=== PATIENT | female | born 1970 | race Caucasian/White ===

== ENCOUNTER 2023-07-13 13:49 | Outpatient (CLI) | payer OTHER, SELFPAY ==
--- NOTE | 2023-07-13 14:30 | CRLHL7_ITS ---
For Patients: As a result of the Cures Act, medical imaging exams and procedure reports are released immediately into your electronic medical record. You may view this report before your referring provider. If you have questions, please contact your health care provider. INDICATION: Hyponatremia. COMPARISON: None. TECHNIQUE: Multiplanar T1, T2, FLAIR and diffusion-weighted imaging. Post gadolinium T1 weighted sequences. Dedicated pre and post scan sequences of the sella. FINDINGS: Normal brain parenchymal morphology. Scattered patchy foci of T2/FLAIR signal hyperintensity within the white matter of both cerebral hemispheres consistent with chronic deep white matter small vessel ischemic changes or sequela migraine headache. No intracranial hemorrhage. No abnormal ventricular dilatation. Intracranial vascular flow voids are preserved. No mass effect or midline shift. No restricted diffusion to suggest acute ischemia. Old lacunar infarct right caudate. Dedicated imaging of the sella demonstrates normal morphology of the pituitary gland. Normal thickness of the infundibulum at midline. No sellar suprasellar mass. Normal cavernous sinuses bilaterally. Bilateral orbits are unremarkable. Visualized paranasal sinuses and mastoid air cells are unremarkable. IMPRESSION: 1. No acute intracranial abnormality 2. Number parenchymal morphology. Scattered patchy T2/FLAIR signal hyperintensities within the white matter of both cerebral hemispheres consistent with chronic deep white matter small vessel ischemic changes or sequela of migraine headache 3. Dedicated imaging of the sella demonstrates normal morphology of the pituitary gland. Normal thickness of the infundibulum. No sellar or suprasellar mass Dictated by Cristopher Waters MD @ 07/14/2023 9:53:23 AM (Electronically Signed)
== END 2023-07-13 13:50 | disposition home or self-care (01) ==
LOC: MRI 13:51
PROVIDERS: PCP Family Medicine; Visit Provider Internal Medicine Nephrology
DX: E87.1 Hypo-osmolality and hyponatremia (principal); E22.2 Syndrome of inappropriate secretion of antidiuretic hormone
CPT/HCPCS: 70553; A9575

== ENCOUNTER 2023-10-05 19:51 | Outpatient (CLI) | payer OTHER, SELFPAY | END 2023-10-05 19:52 | disposition home or self-care (01) | LOC: SLEEP 19:54 | PROVIDERS: PCP Physician Assistant Medical; Visit Provider Internal Medicine | DX: G47.33 Obstructive sleep apnea (adult) (pediatric) (principal) | CPT/HCPCS: 95811; A9270 ==

== ENCOUNTER 2023-10-16 10:30 | Outpatient (CLI) | payer OTHER, SELFPAY ==
[2023-10-16 11:48] VITALS: BP 151/92; PULSE 106
--- NOTE | 2023-10-16 12:03 | P.STN_ITS ---
Stress Test Note Date Date of test: 10/31/23 Providers Primary care provider: Linwood Chamorro Stress test physician: Javier Landon Stress Test Note Stress test ordered: Exercise Stress Test Indication for test: atypical chest pain, palpitations Stress test medicine: None Results discussion: Patient is a very nice 53-year-old female who presents with the above ordered test. After discussion the risks benefits and side effects she would like to proceed. Review of the cardiac stress test medical history form is done. 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 Standard Tuan protocol is done over a time course of 6 minutes 35 seconds, test is terminated because of fatigue. She had no chest pain shortness of breath or other anginal equivalent symptoms. She did have worst was apparent rate dependent PVCs, at the higher heart rate there was no PVCs, but then these re-presented once her heart rate got to be 100. She appeared to be in quadrigeminy. No acute ST wave changes with notable with exercise, conditioning was felt to be moderate. Impression: Negative electrographic tracing on regular stress test, patient appeared to b eing quadrigeminy. Follow up suggested: Patient will be discharged home, there was no complications, she recovered normally, further follow-up per PCP.
== END 2023-10-16 10:31 | disposition home or self-care (01) ==
LOC: STRESS 10:32
PROVIDERS: PCP Physician Assistant Medical; Visit Provider Family Medicine
DX: R07.9 Chest pain, unspecified (principal); R00.2 Palpitations
CPT/HCPCS: 93016; 93017

== ENCOUNTER 2023-12-20 14:43 | Outpatient (CLI) | payer OTHER, SELFPAY | END 2023-12-20 14:44 | disposition home or self-care (01) | LOC: RAD 14:44 | PROVIDERS: PCP Physician Assistant; Visit Provider Internal Medicine Cardiovascular Disease | DX: I49.3 Ventricular premature depolarization (principal); I07.1 Rheumatic tricuspid insufficiency; R00.2 Palpitations | CPT/HCPCS: 93306 ==

== ENCOUNTER 2023-12-21 11:52 | Day surgery (SDC) | payer OTHER, SELFPAY ==
[2023-12-21] VITALS (7 sets, daily range): BP systolic 131–176; BP diastolic 81–99; PULSE 73–98; RESP 18; TEMP 36.4–37; O2SAT 92–99; BMI 35.2; BMI 36.1
--- NOTE | 2023-12-21 13:01 | ED_ITS ---
HPI - Abdominal Pain General Time Seen by Provider: 13:01 Date Seen: 12/21/23 Chief Complaint: Abdominal Pain Stated Complaint: R side abdominal pain Time Seen by Provider: 12/21/23 13:00 Source: patient and RN notes reviewed Mode of arrival: ambulatory Limitations: no limitations History of Present Illness HPI narrative: This 53-year-old female coming to the ER with right upper quadrant abdominal pain that started on Sunday. She denies any prior history of this. Started after eating ice cream. She is worried about her gallbladder. She did go to [facility] and had blood work and examination. She believes she had a chest x-ray but it looks like it was an abdominal x-ray and has not been read yet. [place] [address] in clinic today, hemoglobin normal at 13.9, platelet count [id number]. Her absolute neutrophil count was elevated at 10.1. She is noting the pain does hurt with breathing, did complain of it when I had her sit up. She has an outpatient ultrasound scheduled but it is not until Sunday. Her pain is still present, 3/3. She would take something for pain management, did drive herself here. She has had some nausea, no vomiting. She baseline has constipation. She is also in the process of being worked up for palpitations. This is been going on 8 months. She was started on hormone replacement about 2 weeks ago for anxiety and palpitations per her report. MD elicited complaint: abdominal pain Related Data Patient : No Allergies Allergy/AdvReac Type Severity Reaction Status Date / Time amoxicillin Allergy Verified 12/21/23 16:28 sertraline [From Zoloft] Allergy Verified 12/21/23 16:28 Sulfa (Sulfonamide Allergy Verified 12/21/23 16:28 Antibiotics) Review of Systems Status of ROS Reports: 6 or more systems reviewed and unremarkable except as noted in History and below [facility] Social History Smoking Status: Never smoker Non-prescribed substance use: denies use Exam Const: Vital Signs, click to edit/add: Vital Signs - 24 hr 12/21/23 11:59 12/21/23 13:37 12/21/23 15:32 Temperature 97.5 F L Pulse Rate [Pulse Oximeter] 73 98 Respiratory Rate 18 18 Blood Pressure [Ri ght Upper Arm] 149/93 H 176/96 H Pulse Oximetry 99 98 95 Oxygen Delivery Me thod Room Air Room Air Patient is alert, interactive, no apparent distress. Sclera clear, conjugate gaze. Neck is supple, no adenopathy, no thyromegaly masses nodules. Lungs are clear, good air entry, no wheezing or crackles. CV regular rate and rhythm, no murmur, normal S1-S2 come no S3-S4. Abdomen is soft, no significant tenderness on my examination, maybe some mild right upper quadrant tenderness but no rebound or guarding. I do not feel any organomegaly. She has no lower extremity edema. Patient was ambulatory into the ED of her own accord. Documenting provider has reviewed patient's vital signs: yes Course Course ED Course: Given patient's complaint of worsening right upper quadrant pain with deep breathing when I had her sit up, do think other etiologies like pulmonary and cardiac need to be considered. Will have her on pulse oximetry, obtain EKG. She certainly could have some underlying gallbladder disease, will obtain right upper quadrant ultrasound. Her comprehensive metabolic panel will not be back from clinic, will order this here. Will also be doing other blood work looking at D-dimer, troponin. Reevaluation(s) Time of Reevaluation #1: 15:33 Reevaluation #1: Reviewed with patient the preliminary findings on the ultrasound with some sludge in the gallbladder. We did review that we are proceeding with chest CT PE protocol with elevated D-dimer. She has been having palpitations, do see PVCs on her EKG at this time. She is not hypoxic. She was just put on hormone replacement therapy about 2 weeks ago, did review with her that can increase her risk for blood clots. Her D-dimer admittedly is not severely elevated, I am hopeful that we will not see pulmonary emboli but it is extremely important to rule this out. Did review mild elevation of her AST at 38, ALT of 61. She believes that they were normal just recently. I did pull up patient's chart, have not seen any liver functions in her recent labs other than the pending ones from today. Time of Reevaluation #2: 17:09 Reevaluation #2: Have reviewed with patient her CT findings of cholecystitis, have already talked to general surgeon. Plan will be for admission, surgery tomorrow. We will use antibiotics. She did have some possible mild interstitial fluid in pulmonary vascular congestion on her CT but no pulmonary emboli. Did add a lab on for proBNP. We did review that her palpitations are certainly PVCs. She states she tried metoprolol once but it made her feel like her heart was going to stop. She did not tried again, we discussed potentially decreasing the dose. She should follow up with this outpatient as far as her palpitations. Most recent e cho in her chart from 12/20/2023 showed normal left ventricular size, normal wall thickness, normal global systolic function, calculated EF of 72%. Right ventricular cavity size is normal, global systolic RV function is normal. No significant valvular abnormalities. Normal estimated pulmonary pressures by tricuspid regurgitation velocity and right atrial pressure (21mmHG plus RAP). Of note, patient had amoxicillin after her wisdom teeth or some dental procedure, states she had hives and swelling. Consultations Consultation #1: Did speak with Dr. Perry general surgeon on-call. Reviewed the case. We will initiate Cipro and Flagyl. She will be NPO after midnight, plan for surgery tomorrow. Time: 16:55 Consultation #2: Have spoken with the hospitalist Emerald Sandra, she accepts. Time: 17:18 Vital Signs Vital signs: Initial Vital Signs Temperature 97.5 F L 12/21/23 11:59 Temperature Source Temporal Artery Scan 12/21/23 11:59 Pulse Rate 73 12/21/23 11:59 Pulse Rhythm Regular 12/21/23 11:59 Respiratory Rate 18 12/21/23 11:59 Blood Pressure 149/93 H 12/21/23 11:59 Blood Pressure Mean 111 H 12/21/23 11:59 Blood Pressure Position Sitting 12/21/23 11:59 Pulse Oximetry 99 12/21/23 11:59 Oxygen Delivery Method Room Air 12/21/23 11:59 Vital Signs Temperature 97.5 F L 12/21/23 11:59 Pulse Rate 73 12/21/23 11:59 Respiratory Rate 18 12/21/23 11:59 Blood Pressure 149/93 H 12/21/23 11:59 Pulse Oximetry 99 12/21/23 11:59 Oxygen Delivery Method Room Air 12/21/23 11:59 Temperature 97.5 F L 12/21/23 11:59 Pulse Rate 98 12/21/23 15:32 Respiratory Rate 18 12/21/23 15:32 Blood Pressure 176/96 H 12/21/23 15:32 Pulse Oximetry 95 12/21/23 15:32 Oxygen Delivery Method Room Air 12/21/23 15:32 Medications Administered Medications: Discontinued Medications Generic Name Dose Route Start Last Admin Trade Name Dave PRN Reason Stop Dose Admin Ketorolac Tromethamine 15 mg 12/21/23 14:47 12/21/23 15:32 Ketorolac 15 Mg/Ml Inj IVP 12/21/23 14:48 Not Given ONCE ONE Ketorolac Tromethamine 10 mg 12/21/23 15:25 12/21/23 15:30 Ketorolac 10 Mg Tablet PO 12/21/23 15:26 10 mg ONCE ONE Administration MDM - Abdominal Pain Lab Data Attestation: I reviewed the patient's lab results. Lab results narrative: ProBNP pending at time of admission Labs: Lab Results 12/21/23 12/21/23 12/21/23 Range/Units 13:49 14:20 16:47 D-Dimer Quant (PE/DVT) 0.75 H (0.00-0.50) ug/ml Sodium 134 L (135-149) mmol/L Potassium 3.9 (3.6-5.1) mmol/L Chloride 103 (96-114) mmol/L Carbon Dioxide 23 (20-32) mmol/L Anion Gap 8 (7-15) mEq/L BUN 14 (7-30) mg/dL Creatinine 0.6 (0.5-1.5) mg/dL Estimated Creat Clear 91.48 Estimated GFR 106 ml/min Glucose 121 H (60-115) mg/dL Calcium 8.9 (8.4-10.6) mg/dL Total Bilirubin 1.1 (0.1-1.5) mg/dL AST 38 H (12-35) U/L ALT 61 H (4-35) U/L Alkaline Phosphatase 100 (40-150) U/L Troponin I < 0.01 L (0.01-0.04) ng/mL C-Reactive Protein 4.4 H (0.5-1.0) mg/dL Total Protein 8.6 H (6.0-8.3) g/dL Albumin 4.6 (3.3-5.0) g/dL Lipase 54 (23-300) U/L Lab Acknowledgement Test Added Test Added Imaging Data US - abdomen: Attestation: I have reviewed the pertinent imaging results. Radiologist's impression: Patient: DIO CARUSO Facility:?[facility] Patient ID:?[id number] Site Patient ID:?[id number]. Site :?[id number] Study:?US-Abdomen RUQ-12/21/2023 3:00:51 PM Ordering Physician:?Elisabeth Mckeon Final Report: INDICATION: Right upper quadrant pain. TECHNIQUE: Limited right upper quadrant ultrasound examination of the abdomen was performed. Grayscale and color Doppler images were obtained. COMPARISON: None. FINDINGS: Liver: Normal in size and contour. The hepatic echotexture is normal. No suspicious hepatic masses. Gallbladder: Biliary sludge. Normal in size. No pericholecystic fluid. No cholelithiasis. Sonographic Cameron`s sign was negative. Common bile duct: Measures 6 mm. Pancreas: Visualized portions unremarkable. Right kidney: Normal in size. No hydronephrosis. No suspicious renal masses or obstructive urinary calculus. IMPRESSION: Biliary sludge without other sonographic evidence of cholelithiasis or acute cholecystitis. Dictated by Arsalan Kaur MD @ 12/21/2023 3:31:08 PM (Electronic Signature) CT scan - chest: Attestation: I have reviewed the pertinent imaging results. Radiologist's impression: Patient: DIO CARUSO Facility:?[facility] Patient ID:?[id number] Site Patient ID:?[id number]. Site :?[id number] Study:?CT-Chest Angio PE 95CC ISOVUE 370-12/21/2023 4:26:40 PM Ordering Physician:?Elisabeth Mckeon Final Report: INDICATION: Right-sided pleuritic chest pain. TECHNIQUE: Multiplanar CT pulmonary angiogram was performed after the administration of 95 mL of Isovue 370 intravenous contrast. COMPARISON: None. FINDINGS: Lower neck: The visualized thyroid is unremarkable. Cardiovascular: Contrast opacification of the pulmonary arterial tree is adequate. Heart size is normal. Thoracic aorta and pulmonary artery are normal in caliber. Mild atherosclerotic calcifications of the aortic arch. Dense coronary arterial calcifications. No pulmonary embolus Mediastinum and lymph nodes: Calcified right hilar lymph node, likely due to prior granulomatous disease. No pathologic mediastinal or hilar lymphadenopathy by size criteria. Lungs: No focal consolidation. Mild pulmonary vascular congestion. Diffuse int erlobular septal thickening, compatible with interstitial edema. Mosaic attenuation pattern of opacification diffusely, nonspecific but can be seen with edema, air trapping or atypical infection. Linear bandlike opacification of the lung bases bilaterally, likely subsegmental atelectasis and/or scarring. Airways: The trachea remains patent and midline. Mild diffuse peribronchial wall thickening. Pleura: No pleural effusions or pneumothorax Chest wall: Unremarkable. Bones: No acute osseous abnormalities. Mild degenerative changes of the thoracic spine. Upper abdomen: Please refer to the separately dictated report of the concurrently performed CT abdomen and pelvis for full discussion of findings. No reflux of contrast material into the IVC. IMPRESSION: 1. No pulmonary embolus. No CT evidence of right heart strain. 2. Mild pulmonary vascular congestion with interstitial edema. No pleural effusions. Nonspecific mosaic attenuation pattern opacification can be seen with edema, air trapping or atypical infection. Please note that all CT scans at this facility use dose modulation, iterative reconstruction, and/or weight-based dosing when appropriate to reduce radiation dose to as low as reasonably achievable. Dictated by Arsalan Kaur MD @ 12/21/2023 4:44:17 PM (Electronic Signature) CT scan - abdomen: Attestation: I have reviewed the pertinent imaging results. Radiologist's impression: Patient: DIO CARUSO Facility:?[facility] Patient ID:?[id number] Site Patient ID:?[id number]. Site :?1970 Study:?CT-Abdomen 95CC ISOVUE 370-12/21/2023 4:27:38 PM Ordering Physician:?Elisabeth Mckeon Final Report: INDICATION: Right upper quadrant pain. TECHNIQUE: Multiplanar CT examination of the abdomen was performed after the administration of 95 mL Isovue 370 intravenous contrast. COMPARISON: Same day right upper quadrant ultrasound. FINDINGS: Lower chest: Small hiatal hernia. Please refer to the separately dictated report of the concurrently performed CTA of the chest for full discussion of findings. Liver: Unremarkable. Gallbladder: No cholelithiasis. No gallbladder distention. There is mild pericholecystic inflammation and gallbladder wall thickening measuring up to 4 mm that is more apparent on CT. Biliary: Unremarkable. Pancreas: Within normal limits. Spleen: Unremarkable. Adrenal glands: Unremarkable. Visualized kidneys and ureters: Normal in size and symmetrically enhancing. No obstructive uropathy. No hydronephrosis or obstructive urinary calculi. No suspicious renal masses. The ureters appear unremarkable. Visualized bowel: 2.4 cm duodenal diverticulum. No bowel wall thickening or bowel obstruction. No significant colonic diverticulosis. Mild colonic stool burden. Vasculature: No aortic aneurysm. The portal vein remains patent. Mild atherosclerotic calcifications. Lymph nodes: No pathologic lymphadenopathy by size criteria. Peritoneum: Trace layering fluid along the right paracolic gutter. No pneumoperitoneum. No drainable fluid collections. Abdominal wall/soft tissues: Unremarkable. Small fat containing umbilical hernia. Bones: No acute osseous abnormalities. Mild degenerative changes. IMPRESSION: 1. Mild pericholecystic inflammation and gallbladder wall thickening without cholelithiasis, these findings are more apparent on CT when compared to the same-day ultrasound. No intrahepatic or extrahepatic biliary ductal dilatation. Findings raise the possibility of acute acalculous cholecystitis. 2. Small hiatal hernia. Please note that all CT scans at this facility use dose modulation, iterative reconstruction, and/or weight-based dosing when appropriate to reduce radiation dose to as low as reasonably achievable. Dictated by Arsalan Kaur MD @ 12/21/2023 4:49:44 PM (Electronic Signature) ECG Data Attestation: I personally reviewed and interpreted this ECG as follows: (Sinus rhythm with first-degree AV block, PVCs seen. Rate is 95 beats per minute. QT corrected 449 milliseconds.) ECG interpretation date: 12/21/23 ECG interpretation time: 13:55 Discharge Plan Discharge Clinical Impression: Frequent PVCs, Acalculous cholecystitis Patient Disposition: Admitted As Observation
--- NOTE | 2023-12-21 13:19 | CRLHL7_ITS ---
For Patients: As a result of the Century Cures Act, medical imaging exams and procedure reports are released immediately into your electronic medical record. You may view this report before your referring provider. If you have questions, please contact your health care provider. INDICATION: Right upper quadrant pain. TECHNIQUE: Limited right upper quadrant ultrasound examination of the abdomen was performed. Grayscale and color Doppler images were obtained. COMPARISON: None. FINDINGS: Liver: Normal in size and contour. The hepatic echotexture is normal. No suspicious hepatic masses. Gallbladder: Biliary sludge. Normal in size. No pericholecystic fluid. No cholelithiasis. Sonographic Cameron`s sign was negative. Common bile duct: Measures 6 mm. Pancreas: Visualized portions unremarkable. Right kidney: Normal in size. No hydronephrosis. No suspicious renal masses or obstructive urinary calculus. IMPRESSION: Biliary sludge without other sonographic evidence of cholelithiasis or acute cholecystitis. Dictated by Arsalan Kaur MD @ 12/21/2023 3:31:08 PM (Electronically Signed)
[2023-12-21 14:44] LABS: Albumin* 4.6 g/dL (3.3-5.0); Chloride* 103 mmol/L (96-114)
[2023-12-21 14:45] LABS: Potassium* 3.9 mmol/L (3.6-5.1); Sodium* 134 mmol/L (135-149)
[2023-12-21 14:47] LABS: Creatinine* 0.6 mg/dL (0.5-1.5); Est. Creatinine Clearance* 91.48; Estimated Glomerular Filt Rate 106 ml/min
[2023-12-21 14:48] LABS: Alanine Aminotransferase* 61 U/L (4-35); Alkaline Phosphatase* 100 U/L (40-150); Anion Gap 8 mEq/L (7-15); Aspartate Amino Transferase* 38 U/L (12-35); Bilirubin Total* 1.1 mg/dL (0.1-1.5); Blood Urea Nitrogen* 14 mg/dL (7-30); Calcium* 8.9 mg/dL (8.4-10.6); Carbon Dioxide* 23 mmol/L (20-32); Glucose* 121 mg/dL (60-115); Lipase* 54 U/L (23-300); Total Protein* 8.6 g/dL (6.0-8.3)
[2023-12-21 14:51] LABS: C Reactive Protein* 4.4 mg/dL (0.5-1.0)
[2023-12-21 14:56] LABS: D Dimer Quantitative* 0.75 ug/ml (0.00-0.50)
[2023-12-21 15:00] LABS: Troponin I* < 0.01 ng/mL (0.01-0.04)
--- NOTE | 2023-12-21 15:26 | CRLHL7_ITS ---
For Patients: As a result of the Century Cures Act, medical imaging exams and procedure reports are released immediately into your electronic medical record. You may view this report before your referring provider. If you have questions, please contact your health care provider. INDICATION: Right-sided pleuritic chest pain. TECHNIQUE: Multiplanar CT pulmonary angiogram was performed after the administration of 95 mL of Isovue 370 intravenous contrast. COMPARISON: None. FINDINGS: Lower neck: The visualized thyroid is unremarkable. Cardiovascular: Contrast opacification of the pulmonary arterial tree is adequate. Heart size is normal. Thoracic aorta and pulmonary artery are normal in caliber. Mild atherosclerotic calcifications of the aortic arch. Dense coronary arterial calcifications. No pulmonary embolus Mediastinum and lymph nodes: Calcified right hilar lymph node, likely due to prior granulomatous disease. No pathologic mediastinal or hilar lymphadenopathy by size criteria. Lungs: No focal consolidation. Mild pulmonary vascular congestion. Diffuse interlobular septal thickening, compatible with interstitial edema. Mosaic attenuation pattern of opacification diffusely, nonspecific but can be seen with edema, air trapping or atypical infection. Linear bandlike opacification of the lung bases bilaterally, likely subsegmental atelectasis and/or scarring. Airways: The trachea remains patent and midline. Mild diffuse peribronchial wall thickening. Pleura: No pleural effusions or pneumothorax Chest wall: Unremarkable. Bones: No acute osseous abnormalities. Mild degenerative changes of the thoracic spine. Upper abdomen: Please refer to the separately dictated report of the concurrently performed CT abdomen and pelvis for full discussion of findings. No reflux of contrast material into the IVC. IMPRESSION: 1. No pulmonary embolus. No CT evidence of right heart strain. 2. Mild pulmonary vascular congestion with interstitial edema. No pleural effusions. Nonspecific mosaic attenuation pattern opacification can be seen with edema, air trapping or atypical infection. Please note that all CT scans at this facility use dose modulation, iterative reconstruction, and/or weight-based dosing when appropriate to reduce radiation dose to as low as reasonably achievable. Dictated by Arsalan Kaur MD @ 12/21/2023 4:44:17 PM (Electronically Signed)
[2023-12-21] MEDS: KETOROLAC 10 MG TABLET PO (15:30)
--- NOTE | 2023-12-21 15:38 | CRLHL7_ITS ---
For Patients: As a result of the Century Cures Act, medical imaging exams and procedure reports are released immediately into your electronic medical record. You may view this report before your referring provider. If you have questions, please contact your health care provider. INDICATION: Right upper quadrant pain. TECHNIQUE: Multiplanar CT examination of the abdomen was performed after the administration of 95 mL Isovue 370 intravenous contrast. COMPARISON: Same day right upper quadrant ultrasound. FINDINGS: Lower chest: Small hiatal hernia. Please refer to the separately dictated report of the concurrently performed CTA of the chest for full discussion of findings. Liver: Unremarkable. Gallbladder: No cholelithiasis. No gallbladder distention. There is mild pericholecystic inflammation and gallbladder wall thickening measuring up to 4 mm that is more apparent on CT. Biliary: Unremarkable. Pancreas: Within normal limits. Spleen: Unremarkable. Adrenal glands: Unremarkable. Visualized kidneys and ureters: Normal in size and symmetrically enhancing. No obstructive uropathy. No hydronephrosis or obstructive urinary calculi. No suspicious renal masses. The ureters appear unremarkable. Visualized bowel: 2.4 cm duodenal diverticulum. No bowel wall thickening or bowel obstruction. No significant colonic diverticulosis. Mild colonic stool burden. Vasculature: No aortic aneurysm. The portal vein remains patent. Mild atherosclerotic calcifications. Lymph nodes: No pathologic lymphadenopathy by size criteria. Peritoneum: Trace layering fluid along the right paracolic gutter. No pneumoperitoneum. No drainable fluid collections. Abdominal wall/soft tissues: Unremarkable. Small fat containing umbilical hernia. Bones: No acute osseous abnormalities. Mild degenerative changes. IMPRESSION: 1. Mild pericholecystic inflammation and gallbladder wall thickening without cholelithiasis, these findings are more apparent on CT when compared to the same-day ultrasound. No intrahepatic or extrahepatic biliary ductal dilatation. Findings raise the possibility of acute acalculous cholecystitis. 2. Small hiatal hernia. Please note that all CT scans at this facility use dose modulation, iterative reconstruction, and/or weight-based dosing when appropriate to reduce radiation dose to as low as reasonably achievable. Dictated by Arsalan Kaur MD @ 12/21/2023 4:49:44 PM (Electronically Signed)
[2023-12-21 17:27] LABS: NT Pro B Type NatriureticPept* 335 pg/mL
[2023-12-21] MEDS: CIPROFLOXACIN 400 MG/200 ML PIGGYBACK 200 MG IVPB (17:30)
[2023-12-21] MEDS: 0.9 % SODIUM CH + KCL 20 mEq/L 1,000 ML 75 ML IV (17:30)
--- NOTE | 2023-12-21 17:48 | ED.NURSE ---
report given to yury HINOJOSA. pt to room 278
[2023-12-21] MEDS: metroNIDAZOLE 500 MG/100 ML PIGGYBACK 100 MG IVPB (18:52)
--- NOTE | 2023-12-21 19:23 | P.IMHP_ITS ---
Hospitalist- H&P: HPI History of Present Illness Date Seen: 12/21/23 Chief complaint: R side abdominal pain Narrative: Bette Briceno is a 53 year old female past medical history significant for NORI on CPAP (generally noncompliant), hyperlipidemia (non compliant with statin), PVCs (non compliant with beta-estrellita), SIADH diet managed is admitted to the medical floor from the ED for acute cholelithiasis. Patient reports onset of abdominal pain a couple of days ago. Worsened with eating ice cream. Denies previous colic symptoms or history of gallbladder problems. Denies recent fevers chills or sweats. Had been nauseous but had no vomiting. Last bowel movement was a few days ago. History of constipation but irregularly uses Metamucil. Nonsmoker. Rare alcohol use. Surgical history includes wisdom teeth removal and ablation. No family history of adverse anesthesia events. No personal family history of bleeding disorders or clots. Review of Systems Narrative: REVIEW OF SYSTEMS: Complete review of systems performed and negative unless otherwise stated in HPI or below. PFSH [facility] Medical History Lacunar infarction ?I63.81 - Other cerebral infarction due to occlusion or stenosis of small artery (ICD-10) NORI (obstructive sleep apnea) ?G47.33 - Obstructive sleep apnea (adult) (pediatric) (ICD-10) Hyperlipidemia ?E78.5 - Hyperlipidemia, unspecified (ICD-10) SVT (supraventricular tachycardia) ?I47.10 - Supraventricular tachycardia, unspecified (ICD-10) Frequent PVCs ?I49.3 - Ventricular premature depolarization (ICD-10) SIADH (syndrome of inappropriate ADH production) ?E22.2 - Syndrome of inappropriate secretion of antidiuretic hormone (ICD-10) Social History What is your current living situation?: I presently have a place to live Problems where you live: no known problems Problems where you live details: No known problems In the past 12 months, utilities in danger of being shut off: no In past 12 months, lack of transportation kept you from medical appts, meetings, work, or getting things needed for daily living: no In the past 12 mos, have been you worried that your food would run out before you had money to buy more?: never true In the past 12 mos, the food you bought just didn't last and you didn't have money to buy more?: never true Highest level of school completed/degree received: Associate degree: academic program Smoking Status: Never smoker How often do you have a drink containing alcohol: never How often do you have six or more drinks on one occasion: Never AUDIT-C Alcohol total score: 0 Non-prescribed substance use: denies use Caffeine: No How often does anyone, including family, friends and others, physically hurt you : never How often does anyone, including family, friends and others, insult or talk down to you: never How often does anyone, including family, friends and others, threaten you with harm: never How often does anyone, including family, friends and others, scream or curse at you: never service: No Meds Home Medications and Allergies Allergies Allergy/AdvReac Type Severity Reaction Status Date / Time amoxicillin Allergy Verified 12/21/23 16:28 sertraline [From Zoloft] Allergy Verified 12/21/23 16:28 Sulfa (Sulfonamide Allergy Verified 12/21/23 16:28 Antibiotics) Exam Narrative: Exam Narrative: PHYSICAL EXAM General: Pleasant, conversant, NAD HEENT: Normocephalic, atraumatic, sclera white, EOMI, oral mucosa moist Cardiovascular: IRRR, No pitting edema Pulmonary: CTA bilaterally without rhonchi, rales, expiratory wheezes. No dyspnea Abdominal: Soft, nondistended, tender right upper quadrant, periumbilical Neurological: Alert, answering questions appropriately, cranial nerves intact, no focal findings Extremities: No gross joint deformity or swelling. AROMI. Neurovascularly intact Skin: Warm, dry. Const: Vital Signs, click to edit/add: Vital Signs - 24 hr 12/21/23 11:59 12/21/23 13:37 12/21/23 15:32 Temperature 97.5 F L Pulse Rate [Pulse Oximeter] 73 98 Respiratory Rate 18 18 Blood Pressure [Le ft Arm] Blood Pressure [Ri ght Upper Arm] 149/93 H 176/96 H Pulse Oximetry 99 98 95 Oxygen Delivery Me thod Room Air Room Air 12/21/23 18:38 12/21/23 18:38 Temperature 98.0 F Pulse Rate [Pulse Oximeter] 89 Respiratory Rate 18 18 Blood Pressure [Le ft Arm] 134/96 H Blood Pressure [Ri ght Upper Arm] Pulse Oximetry 94 94 Oxygen Delivery Me thod Room Air Room Air Hospitalist - H&P: Result Labs Labs: [facility] 12/21/23 14:20 Sodium 134 L Potassium 3.9 Chloride 103 Carbon Dioxide 23 BUN 14 Creatinine 0.6 Glucose 121 H Calcium 8.9 Cardiac Enzymes 12/21/23 Range/Units 14:20 Troponin I < 0.01 L (0.01-0.04) ng/mL Liver Function 12/21/23 Range/Units 14:20 Total Bilirubin 1.1 (0.1-1.5) mg/dL AST 38 H (12-35) U/L ALT 61 H (4-35) U/L Alkaline Phosphatase 100 (40-150) U/L Albumin 4.6 (3.3-5.0) g/dL ECG ECG interpretation date: 12/21/23 Interpretation: Sinus rhythm with first-degree AV block with P ACs, ventricular rate 95, QTC [address] scan - abdomen: Attestation: I have reviewed the pertinent imaging results. Radiologist's impression: Multiplanar CT examination of the abdomen was performed after the administration of 95 mL Isovue 370 intravenous contrast. COMPARISON: Same day right upper quadrant ultrasound. FINDINGS: Lower chest: Small hiatal hernia. Please refer to the separately dictated report of the concurrently performed CTA of the chest for full discussion of findings. Liver: Unremarkable. Gallbladder: No cholelithiasis. No gallbladder distention. There is mild pericholecystic inflammation and gallbladder wall thickening measuring up to 4 mm that is more apparent on CT. Biliary: Unremarkable. Pancreas: Within normal limits. Spleen: Unremarkable. Adrenal glands: Unremarkable. Visualized kidneys and ureters: Normal in size and symmetrically enhancing. No obstructive uropathy. No hydronephrosis or obstructive urinary calculi. No suspicious renal masses. The ureters appear unremarkable. Visualized bowel: 2.4 cm duodenal diverticulum. No bowel wall thickening or bowel obstruction. No significant colonic diverticulosis. Mild colonic stool burden. Vasculature: No aortic aneurysm. The portal vein remains patent. Mild atherosclerotic calcifications. Lymph nodes: No pathologic lymphadenopathy by size criteria. Peritoneum: Trace layering fluid along the right paracolic gutter. No pneumoperitoneum. No drainable fluid collections. Abdominal wall/soft tissues: Unremarkable. Small fat containing umbilical hernia. Bones: No acute osseous abnormalities. Mild degenerative changes. IMPRESSION: 1. Mild pericholecystic inflammation and gallbladder wall thickening without cholelithiasis, these findings are more apparent on CT when compared to the same-day ultrasound. No intrahepatic or extrahepatic biliary ductal dilatation. Findings raise the possibility of acute acalculous cholecystitis. 2. Small hiatal hernia. CT scan - chest: Attestation: I have reviewed the pertinent imaging results. Radiologist's impression: Multiplanar CT pulmonary angiogram was performed after the administration of 95 mL of Isovue 370 intravenous contrast. COMPARISON: None. FINDINGS: Lower neck: The visualized thyroid is unremarkable. Cardiovascular: Contrast opacification of the pulmonary arterial tree is adequate. Heart size is normal. Thoracic aorta and pulmonary artery are normal in caliber. Mild atherosclerotic calcifications of the aortic arch. Dense coronary arterial calcifications. No pulmonary embolus Mediastinum and lymph nodes: Calcified right hilar lymph node, likely due to prior granulomatous disease. No pathologic mediastinal or hilar lymphadenopathy by size criteria. Lungs: No focal consolidation. Mild pulmonary vascular congestion. Diffuse interlobular septal thickening, compatible with interstitial edema. Mosaic attenuation pattern of opacification diffusely, nonspecific but can be seen with edema, air trapping or atypical infection. Linear bandlike opacification of the lung bases bilaterally, likely subsegmental atelectasis and/or scarring. Airways: The trachea remains patent and midline. Mild diffuse peribronchial wall thickening. Pleura: No pleural effusions or pneumothorax Chest wall: Unremarkable. Bones: No acute osseous abnormalities. Mild degenerative changes of the thoracic spine. Upper abdomen: Please refer to the separately dictated report of the concurrently performed CT abdomen and pelvis for full discussion of findings. No reflux of contrast material into the IVC. IMPRESSION: 1. No pulmonary embolus. No CT evidence of right heart strain. 2. Mild pulmonary vascular congestion with interstitial edema. No pleural effusions. Nonspecific mosaic attenuation pattern opacification can be seen with edema, air trapping or atypical infection. US - abdomen: Attestation: I have reviewed the pertinent imaging results. Radiologist's impression: Limited right upper quadrant ultrasound examination of the abdomen was performed. Grayscale and color Doppler images were obtained. COMPARISON: None. FINDINGS: Liver: Normal in size and contour. The hepatic echotexture is normal. No suspicious hepatic masses. Gallbladder: Biliary sludge. Normal in size. No pericholecystic fluid. No cholelithiasis. Sonographic Cameron`s sign was negative. Common bile duct: Measures 6 mm. Pancreas: Visualized portions unremarkable. Right kidney: Normal in size. No hydronephrosis. No suspicious renal masses or obstructive urinary calculus. IMPRESSION: Biliary sludge without other sonographic evidence of cholelithiasis or acute cholecystitis. Assessment and Plan Assessment and plan (1) Acalculous cholecystitis: Problem comment: CT shows Mild pericholecystic inflammation and gallbladder wall thickening without cholelithiasis, these findings are more apparent on CT when compared to the same-day ultrasound. No intrahepatic or extrahepatic biliary ductal dilatation. Findings raise the possibility of acute acalculous cholecystitis. US shows Biliary sludge without other sonographic evidence of cholelithiasis or acute cholecystitis ED provider discussed with General surgery, Dr. Perry. Plan for surgical intervention tomorrow Continue Cipro and Flagyl as initiated in ED, maintenance IVF Okay for clear liquid diet now if tolerated without increased pain or nausea/vomiting NPO at midnight Pain and nausea management as needed Discharge planning per General surgery Status: Acute (2) Frequent PVCs: Problem comment: Chronic Recommended to take metoprolol. She took 1 dose but worried that her heart would stop so has not taken any further doses since Status: Acute (3) SIADH (syndrome of inappropriate ADH production): Problem comment: Take salt tablets twice daily, consumes high-protein diet Status: Acute (4) Hyperlipidemia: Problem comment: Recommended to use a statin. Had muscle pain with Lipitor years past. Took a couple doses of Crestor, without side effects, but worried that she would have muscle pain so stop this medication as well Status: Acute (5) NORI (obstructive sleep apnea): Problem comment: Tells me she uses her CPAP 70% of the time, just enough to meet insurance requirements Status: Acute Plan To OR tomorrow per General surgery. Continue IV antibiotics, IV fluids. Pain and nausea management as needed. NPO at midnight Total Time Spent Total Time Spent: Total time spent caring for the patient today was 75 minutes. This includes time spent for the visit reviewing the chart, time spent during the visit, time spent after the visit and documentation and planning in coordination of care.
[2023-12-21] MEDS: 0.9 % SODIUM CHLORIDE 1000 ml 1,000 ML 125 ML IV (20:18)
[2023-12-21] MEDS: SODIUM CHLORIDE 1 GM TABLET PO (21:31)
[2023-12-21] MEDS: MELATONIN 3 MG TABLET PO ×2 (21:32→23:27)
[2023-12-21] MEDS: OXYCODONE 5 MG TABLET PO (22:44)
[2023-12-21] MEDS: MORPHINE 4 MG/ML INJ IVP (23:36)
[2023-12-21] MEDS: ONDANSETRON 2 MG/ML inj 4 MG IVP (23:43)
[2023-12-22] VITALS (21 sets, daily range): BP systolic 100–133; BP diastolic 56–93; PULSE 61–91; RESP 12–18; TEMP 35.9–37.2; O2SAT 90–99
[2023-12-22] MEDS: MORPHINE 4 MG/ML INJ IVP ×2 (02:51→05:02)
[2023-12-22] MEDS: metroNIDAZOLE 500 MG/100 ML PIGGYBACK 100 MG IVPB ×3 (02:51→20:06)
[2023-12-22] MEDS: CIPROFLOXACIN 400 MG/200 ML PIGGYBACK 200 MG IVPB ×2 (05:01→17:01)
[2023-12-22] MEDS: 0.9 % SODIUM CHLORIDE 1000 ml 1,000 ML 125 ML IV (05:02)
--- NOTE | 2023-12-22 07:04 | PC.NURSE ---
End of shift [phone]; Pain well managed with current regimen. Denies nausea or vomiting. Patient increased anxiety with upcoming surgery, patient haves many questions and concerns over surgery and requiring reassurance. Up independently in room.
[2023-12-22 08:33] LABS: Basophils Absolute Auto 0.03 K/uL (0.00-0.30); Basophils Percent Auto 0.3 % (0.0-3.0); Eosinophils Absolute Auto 0.07 K/uL (0.00-0.50); Eosinophils Percent Auto 0.7 % (0.0-7.0); Hematocrit 37.6 % (33.0-51.0); Hemoglobin* 12.3 gm/dL (12.0-16.0); Immature Granulocytes Abs Auto 0.02 K/uL (0.00-0.30); Immature Granulocytes Pct Auto 0.2 %; Lymphocytes Percent Auto 18.7 % (20-44); Mean Corpuscular HGB Conc 33 gm/dL (32-36); Mean Corpuscular Hemoglobin 29 pg (26-34); Mean Corpuscular Volume 90 fL (80-100); Monocytes Percent Auto 9.6 % (0.0-11.0); Neutrophils Absolute Auto 7.35 K/uL (1.7-7.0); Neutrophils Percent Auto 70.5 % (42.0-72.0); Platelet Count* 251 K/uL (140-440); RDW Coefficient of Variation % 12.8 % (11.5-15.5); Red Blood Count 4.18 m/uL (4.00-5.20); White Blood Count* 10.42 K/uL (4.50-11.00)
[2023-12-22 08:34] LABS: Slide Review Reflex No
--- NOTE | 2023-12-22 08:44 | W.ANESCHARGE ---
Anesthesia Charges Start Date/Time Anesthesia Start Date: 12/22/23 Anesthesia Start Time: 09:12 Stop Date/Time Anesthesia Stop Date: 12/22/23 Anesthesia Stop Time: 11:28
[2023-12-22 08:46] LABS: Albumin* 3.7 g/dL (3.3-5.0); Chloride* 107 mmol/L (96-114)
[2023-12-22 08:47] LABS: Potassium* 3.9 mmol/L (3.6-5.1); Sodium* 135 mmol/L (135-149)
[2023-12-22 08:49] LABS: Alkaline Phosphatase* 82 U/L (40-150); Anion Gap 5 mEq/L (7-15); Aspartate Amino Transferase* 25 U/L (12-35); Blood Urea Nitrogen* 12 mg/dL (7-30); Carbon Dioxide* 23 mmol/L (20-32); Creatinine* 0.6 mg/dL (0.5-1.5); Est. Creatinine Clearance* 91.48; Estimated Glomerular Filt Rate 106 ml/min; Lipase* 51 U/L (23-300); Total Protein* 6.9 g/dL (6.0-8.3)
[2023-12-22 08:50] LABS: Alanine Aminotransferase* 39 U/L (4-35); Calcium* 7.8 mg/dL (8.4-10.6); Glucose* 102 mg/dL (60-115)
--- NOTE | 2023-12-22 09:07 | P.GSCN_ITS ---
History of Present Illness Consult details Date Seen: 12/22/23 Consult date: 12/22/23 Narrative: 53-year-old female presented to emergency room with right upper quadrant abdominal pain and I was asked by Dr. Landon to see him in consultation. Patient states that her pain started on Sunday after eating ice cream. The pain was persistent and was not going away. Patient had nausea but no vomiting. She was scheduled for an ultrasound next week but since the pain was persistent and was bothering her a lot, patient presented to clinic first and then was referred to emergency room. Patient states that the pain is worse with movement and taking a deep breath. Nothing was making the pain better except for pain medication. I personally reviewed her workup at the emergency room. She was found to have normal total bilirubin and lipase. AST of 38 and ALT of 61. Patient's WBC was checked in clinic and was 14. Repeat WBC today was normal. A gallbladder ultrasound was obtained that showed sludge with no evidence of cholelithiasis. The gallbladder wall was 2.5 mm thick and there was evidence of pericholecystic fluid. The common bile duct was was measured at [address] was then obtained that showed slightly distended gallbladder with pericholecystic inflammation. There was no dilated loops of small or large intestine. Review of Systems Narrative: General: no fevers HENT: no problems swallowing CV: no shortness of breath Resp: no cough GI: No nausea, vomiting, abdominal pain : no dysuria, no increased urinary frequency, no hematuria Skin: no new rashes Musculoskeletal: no back pain Neuro: no muscle weakness Psyche: no depression, no anxiety PFSH PFSH Medical History Lacunar infarction ?I63.81 - Other cerebral infarction due to occlusion or stenosis of small artery (ICD-10) NORI (obstructive sleep apnea) ?G47.33 - Obstructive sleep apnea (adult) (pediatric) (ICD-10) Hyperlipidemia ?E78.5 - Hyperlipidemia, unspecified (ICD-10) SVT (supraventricular tachycardia) ?I47.10 - Supraventricular tachycardia, unspecified (ICD-10) Frequent PVCs ?I49.3 - Ventricular premature depolarization (ICD-10) SIADH (syndrome of inappropriate ADH production) ?E22.2 - Syndrome of inappropriate secretion of antidiuretic hormone (ICD-10) Surgical History (Updated 12/22/23 @ 09:10 by Miguel Perry MD) H/O cardiac radiofrequency ablation ?Z98.890 - Other specified postprocedural states (ICD-10) Social History What is your current living situation?: I presently have a place to live Problems where you live: no known problems Problems where you live details: No known problems In the past 12 months, utilities in danger of being shut off: no In past 12 months, lack of transportation kept you from medical appts, meetings, work, or getting things needed for daily living: no In the past 12 mos, have been you worried that your food would run out before you had money to buy more?: never true In the past 12 mos, the food you bought just didn't last and you didn't have money to buy more?: never true Highest level of school completed/degree received: Associate degree: academic program Smoking Status: Never smoker How often do you have a drink containing alcohol: never How often do you have six or more drinks on one occasion: Never AUDIT-C Alcohol total score: 0 Non-prescribed substance use: denies use Caffeine: No How often does anyone, including family, friends and others, physically hurt you : never How often does anyone, including family, friends and others, insult or talk down to you: never How often does anyone, including family, friends and others, threaten you with harm: never How often does anyone, including family, friends and others, scream or curse at you: never service: No Meds Home Medications and Allergies Home Medications ?Medication ?Instructions ?Recorded ?Confirmed ?Type aspirin 81 mg chewable tablet 81 mg PO DAILY 12/22/23 12/22/23 History (Aspirin Childrens) estradiol 0.025 mg/24 hr 1 patch topical 2XW 12/22/23 12/22/23 History semiweekly transdermal patch mirtazapine 7.5 mg tablet 7.5 mg PO QPM 12/22/23 12/22/23 History ondansetron 4 mg disintegrating 4 mg PO Q8H PRN 12/22/23 12/22/23 History tablet progesterone micronized 100 mg 100 mg PO QPM 12/22/23 12/22/23 History capsule rosuvastatin 5 mg tablet 5 mg PO QPM 12/22/23 12/22/23 History sodium chloride 1,000 mg soluble 1,000 mg PO BID 12/22/23 12/22/23 History tablet Allergies Allergy/AdvReac Type Severity Reaction Status Date / Time amoxicillin Allergy Verified 12/21/23 16:28 sertraline [From Zoloft] Allergy Verified 12/21/23 16:28 Sulfa (Sulfonamide Allergy Verified 12/21/23 16:28 Antibiotics) Exam Narrative: Exam Narrative: General appearance: Alert, cooperative, and in no distress Pulmonary: Chest symmetric, lungs clear bilaterally Cardiovascular Heart: Regular rate and rhythm, S1, S2, no murmurs/rubs/gallops Gastrointestinal Abdominal: soft, not distended, tender to palpation in the right upper quadrant with positive Cameron sign. Skin: Normal skin color, texture, and turgor. No rashes or lesions. Psychiatric: Alert, cooperative, normal affect. Const: Vital Signs, click to edit/add: Vital Signs - 24 hr 12/21/23 11:59 12/21/23 13:37 12/21/23 15:32 Temperature 97.5 F L Pulse Rate [Pulse Oximeter] 73 98 Respiratory Rate 18 18 Blood Pressure [Le ft Arm] Blood Pressure [Ri ght Upper Arm] 149/93 H 176/96 H Pulse Oximetry 99 98 95 Oxygen Delivery Me thod Room Air Room Air 12/21/23 18:38 12/21/23 18:38 12/21/23 20:13 Temperature 98.0 F 98.6 F Pulse Rate [Pulse Oximeter] 89 86 Respiratory Rate 18 18 18 Blood Pressure [Le ft Arm] 134/96 H 143/99 H Blood Pressure [Ri ght Upper Arm] Pulse Oximetry 94 94 92 Oxygen Delivery Me thod Room Air Room Air Room Air 12/21/23 22:49 12/21/23 23:00 12/22/23 03:00 Temperature 97.6 F 98.3 F Pulse Rate [Pulse Oximeter] 88 88 61 Respiratory Rate 18 18 18 Blood Pressure [Le ft Arm] 131/81 100/56 L Blood Pressure [Ri ght Upper Arm] Pulse Oximetry 93 91 Oxygen Delivery Me thod Room Air Room Air 12/22/23 07:41 Temperature 99.0 F Pulse Rate [Pulse Oximeter] 88 Respiratory Rate 16 Blood Pressure [Le ft Arm] 116/78 Blood Pressure [Ri ght Upper Arm] Pulse Oximetry 92 Oxygen Delivery Me thod Room Air Results Labs Labs: Abnormal lab results 12/21/23 12/22/23 Range/Units 14:20 08:20 Lymph % (Auto) 18.7 L (20-44) % Neut # (Auto) 7.35 H (1.7-7.0) K/uL [place] # (Auto) 1.00 H (0.00-0.90) K/UL D-Dimer Quant (PE/DVT) 0.75 H (0.00-0.50) ug/ml Sodium 134 L (135-149) mmol/L Anion Gap 5 L (7-15) mEq/L Glucose 121 H (60-115) mg/dL Calcium 7.8 L (8.4-10.6) mg/dL AST 38 H (12-35) U/L ALT 61 H 39 H (4-35) U/L Troponin I < 0.01 L (0.01-0.04) ng/mL C-Reactive Protein 4.4 H (0.5-1.0) mg/dL Total Protein 8.6 H (6.0-8.3) g/dL Diabetes panel 12/21/23 12/22/23 Range/Units 14:20 08:20 Sodium 134 L 135 (135-149) mmol/L Potassium 3.9 3.9 (3.6-5.1) mmol/L Chloride 103 107 (96-114) mmol/L Carbon Dioxide 23 23 (20-32) mmol/L BUN 14 12 (7-30) mg/dL Creatinine 0.6 0.6 (0.5-1.5) mg/dL Glucose 121 H 102 (60-115) mg/dL Calcium 8.9 7.8 L (8.4-10.6) mg/dL AST 38 H 25 (12-35) U/L ALT 61 H 39 H (4-35) U/L Alkaline Phosphatase 100 82 (40-150) U/L Total Protein 8.6 H 6.9 (6.0-8.3) g/dL Albumin 4.6 3.7 (3.3-5.0) g/dL Calcium panel 12/21/23 12/22/23 Range/Units 14:20 08:20 Calcium 8.9 7.8 L (8.4-10.6) mg/dL Albumin 4.6 3.7 (3.3-5.0) g/dL Pituitary panel 12/21/23 12/22/23 Range/Units 14:20 08:20 Sodium 134 L 135 (135-149) mmol/L Potassium 3.9 3.9 (3.6-5.1) mmol/L Chloride 103 107 (96-114) mmol/L Carbon Dioxide 23 23 (20-32) mmol/L BUN 14 12 (7-30) mg/dL Creatinine 0.6 0.6 (0.5-1.5) mg/dL Glucose 121 H 102 (60-115) mg/dL Calcium 8.9 7.8 L (8.4-10.6) mg/dL Adrenal panel 12/21/23 12/22/23 Range/Units 14:20 08:20 Sodium 134 L 135 (135-149) mmol/L Potassium 3.9 3.9 (3.6-5.1) mmol/L Chloride 103 107 (96-114) mmol/L Carbon Dioxide 23 23 (20-32) mmol/L BUN 14 12 (7-30) mg/dL Creatinine 0.6 0.6 (0.5-1.5) mg/dL Glucose 121 H 102 (60-115) mg/dL Calcium 8.9 7.8 L (8.4-10.6) mg/dL Total Bilirubin 1.1 1.0 (0.1-1.5) mg/dL AST 38 H 25 (12-35) U/L ALT 61 H 39 H (4-35) U/L Alkaline Phosphatase 100 82 (40-150) U/L Total Protein 8.6 H 6.9 (6.0-8.3) g/dL Albumin 4.6 3.7 (3.3-5.0) g/dL All other labs normal. Progress Note:A&P Assessment and plan (1) Acalculous cholecystitis: Status: Acute Assessment and Plan: 53-year-old female presents with right upper quadrant abdominal pain that is most likely due to acute cholecystitis. I discussed with the patient her laboratory and imaging findings. On ultrasound and CT scan she has evidence of pericholecystic inflammation. On clinical exam she has tenderness to palpation in the right upper quadrant with positive Cameron sign, all of these findings consistent with acute cholecystitis. I recommended to proceed with laparoscopic cholecystectomy. The procedure was discussed in detail. The risks associated procedure including infection, bleeding, injury to the common bile duct, and injury to intra-abdominal organs were all discussed with the patient, and she agreed to proceed.
[2023-12-22] MEDS: CLINDAMYCIN 900 MG/50 ML-D5W 900 MG/50 ML PIGGYBACK 100 MG IVPB (09:24)
[2023-12-22] MEDS: LACTATED RINGERS 1000 ML 1,000 ML 125 ML IV ×2 (09:30→21:27)
[2023-12-22] MEDS: BUPIVACAINE 0.25% 30 ML INJECTION (11:06)
--- NOTE | 2023-12-22 11:17 | P.GSOP_ITS ---
Operative Note Date of procedure: 12/22/23 Pre-op diagnosis: 1. Acute cholecystitis. Post-op diagnosis: 1. Acute purulent cholecystitis. Type of Procedure: 1. Laparoscopic cholecystectomy. Indications: 53-year-old female presented to emergency room with several days of right upper quadrant pain that started after eating ice cream. The pain was not improving and was persistent. Patient had nausea but no vomiting. The pain was worse with taking a deep breath and with movement. Upon her workup she was found to have an elevated WBC of 14. Gallbladder ultrasound showed gallbladder sludge with normal gallbladder wall thickness and with presence of pericholecystic fluid. Her common bile duct was normal in size. Abdominal CT was obtained that showed a slightly distended gallbladder with pericholecystic inflammation. This was concerning for acute cholecystitis. On clinical exam patient had tenderness to palpation in the right upper quadrant with positive Cameron sign. Given patient's clinical history and her physical exam, acute cholecystitis was suspected, and laparoscopic cholecystectomy was recommended. The procedure was discussed in detail. The risks associated procedure including infection, bleeding, injury to intra-abdominal organs, and injury to the common bile duct were all discussed with the patient, and she agreed to proceed. Procedure Description: After discussing the risks and benefits of the procedure, the patient signed informed consent.? The operative site was marked and the patient was brought to the operating room and placed on the operating table in supine position.? Care was taken to pad the patient's pressure points.?? The patient was then intubated by anesthesia.?? The operative site was then prepped and draped in the usual sterile fashion.? A time-out was then performed. A 5-mm laparoscopy port was placed in the left upper quadrant guided by a 5-mm laparoscope placed into a translucent trochar.~ Passage through the layers of the abdominal wall was visualized with the laparoscope.~ A pneumoperitoneum was established. A 0-degree 5-mm laparoscope was advanced into the abdomen. The abdomen was briefly surveyed, and no adhesions were noted. A 10-mm port were placed infraumbilically and two more 5 mm ports were placed on the right under direct visualization by laparoscope. The camera was then changed to 10 mm 30- degree scope and placed into the abdomen through the 10 mm port. The left upper quadrant port entrance was examined and no injury to intra-abdominal organs was identified. The gallbladder was initially not identified. It was completely covered by omentum. Mental adhesions were taken down bluntly with the suction tip. The gallbladder was taut and was not able to grasp it. Laparoscopic needle and syringe were used to decompress the gallbladder. 40cc of Clear bile was suctioned from the gallbladder. The gallbladder was then grasped and retracted cephalad. Additional omental adhesions were taken down with cautery and bluntly until the gallbladder infundibulum was identified. The inflammatory rind was thickened and there was evidence of acute cholecystitis. The infundibulum was grasped and retracted laterally, exposing the peritoneum overlying the triangle of Calot. This was then divided and exposed in a blunt fashion and with hook cautery. Common bile duct was not identified but care was taken not to injure it. The node of [place] was overlying the cystic artery. This was dissected circumferentially. The cystic artery was clearly going into the gallbladder. This was clipped with two 5 mm clips on the patient's side and a single clip on the specimen side and divided with scissors. Dividing the cystic artery allowed better visualization of the medial gallbladder wall and cystic duct. The cystic duct and infundibulum were then further skeletonized bluntly and with hook cautery. The cystic duct was short. It was clipped with a single clip on the patient's side and a single clip on the gallbladder side staying close to the gallbladder infundibulum. The proximal clip barely went across the lumen of the cystic duct. The cystic duct was then divided with scissors. 0-0 PDS endoloop was placed just proximal to the cystic duct stump clipped to prevent bile leaks. I then continued dissecting the gallbladder off the gallbladder fossa. Moderate amount of edema was seen in the gallbladder wall. The gallbladder wall was tearing and creating openings in the gallbladder. Frankly purulent fluid came out from the gallbladder and that was suctioned out. We were finally able to dissect the gallbladder off the liver with hook cautery. Bleeding from lateral edge of the gallbladder fossa was noted, and this was controlled with 5 mm clips. Bleeding from the liver bed was controlled with hook cautery. The gallbladder was placed into an Endo-Catch bag and removed through the inf raumbilical incision. Surgical site was examined for bleeding. No further bleeding was seen in the surgical field. The right upper quadrant was then irrigated with copious amounts of normal saline. The fascia of the infraumbilical incision was then closed with 0-0 vicryl using [place] needle under direct visualization. Pneumoperitoneum was completely reduced after viewing removal of the trocars under direct vision. The skin was then closed with 4-0 monocryl and steristrips were applied. Instrument, sponge, and needle counts were correct at closure and at the conclusion of the case. The patient was transferred to PACU in stable condition. Findings: Purulent cholecystitis with franco pus coming out from the gallbladder. Anesthesia: GETA Surgeon: Miguel Perry MD Estimated blood loss (mL): 20 Specimen: Gallbladder Condition: stable Disposition: PACU
--- NOTE | 2023-12-22 12:03 | SUR.PHASEI ---
patient meets pacu d/c criteria
[2023-12-22] MEDS: HYDROCODONE-ACETAMIN 5-325 MG 1 TAB PO ×2 (15:21→21:31)
[2023-12-22] MEDS: HYDROmorphone 0.5 mg/0.5 ml inj IVP (20:06)
[2023-12-22] MEDS: ONDANSETRON 2 MG/ML inj IVP ×2 (20:11→20:55)
[2023-12-23] MEDS: HYDROmorphone 0.5 mg/0.5 ml inj IVP ×2 (01:29→04:19)
[2023-12-23] MEDS: HYDROCODONE-ACETAMIN 5-325 MG 1 TAB PO ×2 (04:18→10:05)
[2023-12-23] MEDS: metroNIDAZOLE 500 MG/100 ML PIGGYBACK 100 MG IVPB (04:20)
[2023-12-23] MEDS: ONDANSETRON 2 MG/ML inj IVP (04:27)
[2023-12-23 04:45] VITALS: BP 118/69; PULSE 83; RESP 18; TEMP 36.7; O2SAT 90
[2023-12-23] MEDS: CIPROFLOXACIN 400 MG/200 ML PIGGYBACK 200 MG IVPB (05:31)
--- NOTE | 2023-12-23 06:04 | PC.NURSE ---
End of shift [id number]: Cooperative with cares. Pain not managed upon start of shift, pain to abdomen reported at 8/10. Call placed to surgeon and new orders for IV dilaudid PRN for pain. Pain was managed throughout the night after addition of IV medication. Tolerating full liquid diet, intermittent nausea managed with ondansetron. Ambulates with SBA to bathroom and back, did not tolerate walking in the hallway due to increased nausea at HS. Lap incisions to abdomen clean, dry and open to air. Ice pack applied to abdomen.
[2023-12-23] MEDS: LACTATED RINGERS 1000 ML 1,000 ML 125 ML IV (06:47)
[2023-12-23 07:00] VITALS: BP 123/64; PULSE 87; RESP 18; TEMP 36.7; O2SAT 90
--- NOTE | 2023-12-23 07:55 | PM.DS1 ---
DS: Providers Provider Date Seen: 12/23/23 Primary care physician: CHRISTA Aviles Attending Physician on discharge: Miguel Perry MD DS: Diagnosis Discharge Diagnosis (1) Cholecystitis, acute: Status: Acute DS: Summary Hospital Course Hospital Course: 53-year-old female was admitted to the hospital with acute cholecystitis. She underwent laparoscopic cholecystectomy. Intraoperatively patient was found to have purulent cholecystitis. She was treated with IV antibiotics and discharged home on p.o. antibiotics. Patient did well postoperatively. Time Spent with Patient Time attestation: Total time spent providing and/or coordinating discharge services: Exam Narrative: Exam Narrative: Abdomen is soft, not distended, tender to palpation in epigastrium but no where else. Laparoscopic incisions are covered by clean Steri-Strips. Const: Vital Signs, click to edit/add: Vital Signs - 24 hr 12/22/23 11:26 12/22/23 11:30 12/22/23 11:35 Temperature 98.5 F Pulse Rate 88 79 78 Pulse Rate [Pulse Oximeter] Respiratory Rate 16 16 15 Blood Pressure 118/69 112/69 115/70 Blood Pressure [Le ft Arm] Pulse Oximetry 99 98 96 Oxygen Delivery Me thod OxyMask Oxygen Flow Rate 6 12/22/23 11:40 12/22/23 11:45 12/22/23 11:50 Temperature 97.6 F Pulse Rate 78 81 84 Pulse Rate [Pulse Oximeter] Respiratory Rate 12 14 13 Blood Pressure 117/72 119/75 117/74 Blood Pressure [Le ft Arm] Pulse Oximetry 98 93 96 Oxygen Delivery Me thod Nasal Cannula Oxygen Flow Rate 2 1 12/22/23 11:59 12/22/23 12:15 12/22/23 12:30 Temperature 96.6 F L Pulse Rate 90 83 81 Pulse Rate [Pulse Oximeter] Respiratory Rate 16 16 16 Blood Pressure 119/89 114/69 115/74 Blood Pressure [Le ft Arm] Pulse Oximetry 91 92 93 Oxygen Delivery Me thod Nasal Cannula Nasal Cannula Nasal Cannula Oxygen Flow Rate 1 1 1 12/22/23 12:45 12/22/23 13:00 12/22/23 13:30 Temperature 97.8 F Pulse Rate 83 86 84 Pulse Rate [Pulse Oximeter] Respiratory Rate 16 16 16 Blood Pressure 128/79 127/82 123/93 H Blood Pressure [Le ft Arm] Pulse Oximetry 93 94 92 Oxygen Delivery Me thod Nasal Cannula Nasal Cannula Nasal Cannula Oxygen Flow Rate 1 1 1 12/22/23 14:00 12/22/23 15:00 12/22/23 16:00 Temperature 98.2 F 97.9 F Pulse Rate 86 91 87 Pulse Rate [Pulse Oximeter] Respiratory Rate 16 18 16 Blood Pressure 120/81 114/77 125/87 Blood Pressure [Le ft Arm] Pulse Oximetry 95 92 92 Oxygen Delivery Me thod Nasal Cannula Nasal Cannula Nasal Cannula Oxygen Flow Rate 1 1 1 12/22/23 17:00 12/22/23 18:00 12/22/23 19:00 Temperature 98.0 F 97.2 F L Pulse Rate 82 89 Pulse Rate [Pulse Oximeter] 86 Respiratory Rate 16 16 18 Blood Pressure 133/83 131/82 Blood Pressure [Le ft Arm] 128/71 Pulse Oximetry 93 92 91 Oxygen Delivery Me thod Nasal Cannula Nasal Cannula Nasal Cannula Oxygen Flow Rate 1 1 1 12/22/23 23:00 12/22/23 23:00 12/23/23 04:45 Temperature 98.1 F Pulse Rate Pulse Rate [Pulse Oximeter] 86 82 83 Respiratory Rate 18 18 18 Blood Pressure Blood Pressure [Le ft Arm] 118/69 Pulse Oximetry 90 90 Oxygen Delivery Me thod Room Air Room Air Oxygen Flow Rate DS: Data Data Completed and Pending Labs on day of discharge: Labs from last 24 hours 12/22/23 08:20 WBC 10.42 RBC 4.18 Hgb 12.3 Hct 37.6 MCV 90 MCH 29 MCHC 33 RDW Coeff of [place] 12.8 Plt Count 251 Neut % (Auto) 70.5 Lymph % (Auto) 18.7 L [place] % (Auto) 9.6 Eos % (Auto) 0.7 Baso % (Auto) 0.3 Neut # (Auto) 7.35 H Lymph # (Auto) 1.90 [place] # (Auto) 1.00 H Eos # (Auto) 0.07 Baso # (Auto) 0.03 Abs Immat Gran (auto) 0.02 Imm/Tot Granulo (auto) 0.2 Sodium 135 Potassium 3.9 Chloride 107 Carbon Dioxide 23 Anion Gap 5 L BUN 12 Creatinine 0.6 Estimated Creat Clear 91.48 Estimated GFR 106 Glucose 102 Calcium 7.8 L Total Bilirubin 1.0 AST 25 ALT 39 H Alkaline Phosphatase 82 Total Protein 6.9 Albumin 3.7 Lipase 51 Discharge Plan Discharge Disposition: Home w/ Parent or Adult Discharging Surgeon: Miguel Perry Follow-Up Appointment: 2 weeks [facility] Prescriptions: New hydrocodone-acetaminophen 5-325 mg tablet 1 tab PO Q6H PRN (Reason: pain) Qty: 25 0RF polyethylene glycol 3350 [Miralax] 17 gram/dose powder 17 g PO DAILY Qty: 119 0RF ciprofloxacin HCl [Cipro] 500 mg tablet 500 mg PO BID Qty: 10 0RF metronidazole 500 mg tablet 500 mg PO TID Qty: 15 0RF Continued progesterone micronized 100 mg capsule 100 mg PO QPM estradiol 0.025 mg/24 hr patch semiweekly 1 patch topical 2XW rosuvastatin 5 mg tablet 5 mg PO QPM mirtazapine 7.5 mg tablet 7.5 mg PO QPM sodium chloride 1,000 mg tablet,soluble 1,000 mg PO BID aspirin [Aspirin Childrens] 81 mg tablet,chewable 81 mg PO DAILY ondansetron 4 mg tablet,disintegrating 4 mg PO Q8H PRN Activity Level: No strenuous activity Activity Detail: No strenuous activity or lifting more than 15-20 lbs for 4-6 weeks. Take laxative such as MiraLax or senna daily for the first 7-10 days after surgery to prevent constipation. Discharge Diet: Regular Patient Instructions: Hydrocodone/Acetaminophen (By mouth), Polyethylene Glycol 3350 (By mouth), General Anesthesia (DC), Laparoscopic Cholecystectomy (DC), Post-Operative Instructions: Laparoscopic Cholecystectomy Follow-up: Miguel Perry MD [Staff Physician] - ([facility]) Discharge Orders: Discharge Order (Routine); Ordered 12/23/23 Ordered By: Miguel Perry
--- NOTE | 2023-12-23 11:12 | PC.NURSE ---
Patient alert and oriented x4, tolerating a reg. diet. Patient reports passing gas, VSS and ambulating room and hallways indpen. 4 lap sites on abd, C/D/I. Patient rates pain when moving around at 8/10, PRN [place] administrered with relief. Patient discharged today at 1055, to home accompanied by BF. Patient's IV removed intact. Belongings sheet signed and patient verbalized understanding of discharge instructions.
--- NOTE | 2023-12-24 13:46 | PC.NURSE ---
Patient called stating she is having intermittent right sided pain under breast. It comes and goes. Hurts worse when she eats. Patient also stated she feels bloated and is having a hard time taking a deep breath. Denies N/V, fevers, and blood in stool. Spoke with oncall surgeon, Dr. Perry. Per Dr. Perry, it sounds to be normal postoperative pain at this time. Would encourage patient to be more aggressive with bowel care and add in ex-lax or magnesium citrate. Educated patient to call or be seen in ER if she develops fevers, unable to eat or drink, pain not relieved by prescription pain medications, or if worsening shortness of breath. Patient verbally understood instructions and stated her pain was getting better after taking the [place].
--- NOTE | 2023-12-28 15:39 | PC.NURSE ---
Post discharge-- Pt called post discharge stating that she continues to have mild, dull pain in center of abdomen and beneath breast and bloating. She stated that it felt like, someone blew up a balloon in her abdomen. Spoke with Dr. Weinstein, immigration judge surgeon, who stated that if she has other warning signs (such as vomiting, fevers, unable to eat or drink, or severe pain that is unresolved with pain meds) that she would have to come in to be evaluated. Otherwise she should follow up with Dr. Perry in clinic next week. Pt stated that she has a follow up appointment scheduled with Dr. Perry for Sunday. All questions answered.
== END 2023-12-23 10:55 | disposition home or self-care (01) ==
LOC: ED 17:18 → MEDSURG 17:39 → OR 12-22 08:01 → MEDSURG 12-22 08:02
PROVIDERS: Physician Assistant; Emergency Provider Family Medicine; PCP Physician Assistant; Visit Provider Surgery
PROC: 0FT44ZZ Resection of Gallbladder, Percutaneous Endoscopic Approach (ICD-10-PCS; CPT 47562; principal; 2023-12-22 09:00)
DX: K81.0 Acute cholecystitis (principal); R10.11 Right upper quadrant pain; I49.3 Ventricular premature depolarization; E22.2 Syndrome of inappropriate secretion of antidiuretic hormone; E78.5 Hyperlipidemia, unspecified; G47.33 Obstructive sleep apnea (adult) (pediatric)
CPT/HCPCS: 47562; 00790; 36415; 71275; 74160; 76705; 80053; 83690; 83880; 84484; 85025; 85379; 86140; 88304; 93005; 94761; 99285; A9270; G0378; J0330; J0665; J0736; J0744; J1100; J1170; J1836; J2250; J2270; J2405; J2704; J3010; J3490; J7030; J7120; Q9967

== ENCOUNTER 2024-02-12 20:02 | Outpatient (CLI) | payer OTHER, SELFPAY | END 2024-02-12 20:03 | disposition home or self-care (01) | LOC: SLEEP 20:02 | PROVIDERS: PCP Physician Assistant; Visit Provider Internal Medicine | DX: G47.33 Obstructive sleep apnea (adult) (pediatric) (principal); G47.31 Primary central sleep apnea | CPT/HCPCS: 95811 ==

== ENCOUNTER 2024-02-28 09:21 | Outpatient (CLI) | payer OTHER, SELFPAY | END 2024-02-28 09:22 | disposition home or self-care (01) | LOC: FRMREF 09:26 | PROVIDERS: PCP Physician Assistant; Visit Provider Family Medicine | DX: R73.09 Other abnormal glucose (principal); E22.2 Syndrome of inappropriate secretion of antidiuretic hormone | CPT/HCPCS: 80053 ==